=== PATIENT | male | born 2000 | race African-American/Black ===

== ENCOUNTER 2018-10-01 12:18 | Emergency (ER) | payer OTHER ==
[~2018-10-01] VITALS: Ht 180.3 cm; Wt 84.1 kg
[2018-10-01] MEDS ORDERED: BUPR75TA5 PO (12:56)
[2018-10-01] MEDS ORDERED: IBUPROFEN 600 MG TAB PO ONE (14:00)
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
--- NOTE | 2018-10-01 15:17 | REP ---
BILATERAL KNEE SERIES: Five views of bilateral each knee were performed. There is no acute fracture or dislocation. Joint spaces are unremarkable in appearance. There is no joint effusion. IMPRESSION: No evidence of acute fracture or dislocation. Electronically Signed by Rakan Samuels MD 10/01/2018 04:03 P
[2018-10-01] MEDS ORDERED: IBUP-1022 PO (15:29)
[2018-10-01 15:32] VITALS: BP 108/65
== END 2018-10-01 15:33 | disposition home or self-care (01) ==
LOC: M ED 12:18
DX: S80.01XA Contusion of right knee, initial encounter (principal); S80.02XA Contusion of left knee, initial encounter; S50.02XA Contusion of left elbow, initial encounter; V43.62XA Car passenger injured in collision with other type car in traffic accident, initial encounter; Y92.410 Unspecified street and highway as the place of occurrence of the external cause; Z79.899 Other long term (current) drug therapy

== ENCOUNTER → 2018-11-12 | Day surgery (SDC) | payer OTHER ==
[~2018-11-12] VITALS: Ht 180.3 cm; Wt 84.1 kg
[~2018-11-12] MED LIST: BUPR150T3 PO; BUPR75TA5 PO; IBUP-1022 PO; KETOROLAC 60 MG/2 ML VIAL (J1885) As Ordered ONE; LIDOCAINE 1% SDV INJ 30 ML VIAL As Ordered ONE; LIDOCAINE 2% INJ 100 MG/5 ML SDV (FOR ANES.) As Ordered ONE; LR 1,000 ML IV SCH; METOCLOPRAMIDE INJ 10MG/2ML VIAL (J2765) IV PRN; MIDAZOLAM INJ 2 MG/2 ML VIAL (J2250) As Ordered ONE; MORPHINE 10 MG/ML 1ML VIAL (J2270) IV PRN; NS 1,000 ML IV SCH; ONDANSETRON 4MG/2ML VIAL (J2405) As Ordered ONE; ONDANSETRON 4MG/2ML VIAL (J2405) IV ONE; ONDANSETRON 4MG/2ML VIAL (J2405) IV PRN; PERCOCET 5MG/325MG TAB PO PRN; PROPOFOL 200 MG/20 ML VIAL As Ordered ONE; ROCURONIUM BROMIDE 50 MG/5 ML VIAL As Ordered ONE; SUGAMMADEX SODIUM 500 MG/5 ML VIAL (BRIDION) As Ordered ONE; cefTRIAXone SOD 1 GM VIAL (J0696) As Ordered ONE; dexameTHASONE 4 MG/ML 1ML VIAL (J1100) As Ordered ONE; fentaNYL 100 MCG/2 ML INJECTION (J3010) IV PRN; fentaNYL 250 MCG/5 ML INJECTION (J3010) As Ordered ONE
[2018-11-12] MEDS: MORPHINE 4 MG/ML 1ML VIAL/SYRINGE (J2270) IV PRN ×2 (11:48→12:40)
[2018-11-12 12:30] LABS: HEMATOCRIT 40.2 % (42.0-52.0); HEMOGLOBIN 13.5 g/dl (13.5-17.5); MEAN CORPUSCULAR HEMOGLOBIN 30.3 pg (27.0-33.0); MEAN CORPUSCULAR HGB CONC 33.6 g/dl (32.0-36.5); MEAN CORPUSCULAR VOLUME 90.3 fl (80.0-96.0); PLATELET COUNT, AUTOMATED 190 10^3/uL (150-450); RED BLOOD COUNT 4.45 10^6/uL (4.30-6.10); WHITE BLOOD COUNT 5.5 10^3/uL (4.0-10.0)
[2018-11-12 12:49] LABS: INR 1.22; PARTIAL THROMBOPLASTIN TIME 29.1 SECONDS (25.4-37.6); PROTHROMBIN TIME 15.6 SECONDS (12.1-14.4)
[2018-11-12 12:59] LABS: BLOOD UREA NITROGEN 12 MG/DL (7-18); CALCIUM LEVEL 9.1 MG/DL (8.5-10.1); CARBON DIOXIDE LEVEL 26 MEQ/L (21-32); CHLORIDE LEVEL 107 MEQ/L (98-107); CREATININE FOR GFR 0.95 MG/DL (0.70-1.30); GLUCOSE, FASTING 101 MG/DL (70-100); POTASSIUM SERUM 3.6 MEQ/L (3.5-5.1); SODIUM LEVEL 138 MEQ/L (136-145)
--- NOTE | 2018-11-12 14:29 | REP ---
SCROTAL ULTRASOUND: 11/12/2018. CLINICAL HISTORY: Scrotal pain and swelling. FINDINGS: No prior study. The right testis 5.4 x 3 x 3.1 cm and the left is 4.7 x 2.1 x 3.4 cm. On the color images [id number], there was no flow seen within the right testis. Left testis is homogeneous. It shows color flow with Doppler tracing resistive index 0.47. The right testis showed no color flow and no Doppler arterial flow visible. Scrotal wall thickness is 5.3 mm on the right and 2.5 mm on the left. The epididymal head size on the right is 7.3 mm and on the left 15.9 mm. There is a cyst in epididymal head on the left 11 x 8 x 9 mm. Small hydrocele is present on both sides. IMPRESSION: 1. Torsion of the right testis with no blood flow demonstrated on color or Doppler tracings. 2. Normal left testis. Small hydroceles. I discussed this by phone with Dr. Lowery in the emergency room treating this patient. Electronically Signed by Thom Benz MD 11/12/2018 06:39 P
[2018-11-12 18:25] VITALS: BP 135/88
--- NOTE | 2018-12-02 15:53 | RO ---
DATE OF PROCEDURE: 11/12/2018 PREOPERATIVE DIAGNOSIS: Left testicular torsion. POSTOPERATIVE DIAGNOSIS: Left testicular torsion. OPERATIVE PROCEDURE PERFORMED: 1. Scrotal exploration. 2. Bilateral orchiopexy. SURGEON: Ernesto Bhatt MD FILING WRITER: ANESTHESIA: General. ESTIMATED BLOOD LOSS: Minimal. INDICATION FOR SURGERY: Katie Nieves is a 18-year-old young man who awoke from bed with severe left-sided scrotal pain and swelling. He came to the emergency room where venous Doppler showed findings consistent with left testicular torsion. He now presents for urgent management of this problem. DESCRIPTION OF PROCEDURE: The patient was brought to the operating room, placed in supine position. After initiation of general anesthesia, was placed in the dorsal lithotomy position. After initiation of general anesthesia, was prepped and draped in the usual sterile fashion. A horizontal incision was made over the left hemiscrotum, and dissection was carried out through the layers of the scrotum. The tunica vaginalis was entered, and a small amount of fluid was removed. The testicle was noted to be dusky blue. It was rotated 360 degrees in order to completely detorse the testicle, at which point the testicle was noted to pink up somewhat. It was surrounded in a warm lap. Attention was turned to the contralateral testicle. A horizontal incision was made over the right hemiscrotum, and again dissection was carried out through the layers of the scrotum. The tunica vaginalis was again entered, and a small amount of clear and colored fluid was removed. The testicle on this side was palpably normal. The appendix testis and the appendix epididymis was removed using electrocautery device. With the testicle in its normal anatomical position, it was tacked to the dartos fascia medially and laterally with a nylon suture. Once this was complete, the scrotum was closed in layers, the skin being closed with a running chromic suture. Our attention was then redirected to the original side, the left. The warm lap was removed, and the testicle was noted to be much more viable. There was an area on the superior lateral aspect of the testicle that was still a little dusky, but it was felt that this would improve with improved blood flow. The testicle was returned to its normal anatomical position in the scrotum and again tacked medially and laterally to the dartos layer using a nylon suture. At the conclusion of the procedure, the testicles were noted to be pretty stabilized in the scrotum. The scrotum was closed on the left side, again in layers and skin being closed with a running chromic suture. The wound was then cleaned and dried and covered with Telfa and placed in the fluff and a scrotal support. Anesthesia was reversed, and the patient was transferred to a bed and taken to the postanesthesia care unit in good condition. Of note, the needle and instrument count were correct at the conclusion of the case.
== END | disposition home or self-care (01) ==
LOC: EDUNIT# 11:06 → M ED 11:13 → EDBD 11:13 → M SDC 14:35
PROVIDERS: ATTEND Urology
DX: N44.00 Torsion of testis, unspecified (principal)
CPT/HCPCS: 36415; 54640; 76870; 80048; 85027; 85610; 85730; 93976; 96374; 96375; 99284; J0696; J1100; J2250; J2270; J2405; J3010

== ENCOUNTER 2019-07-19 18:46 | Emergency (ER) | payer OTHER ==
[~2019-07-19] VITALS: Ht 180.3 cm; Wt 83.2 kg
[~2019-07-19 18:46] MED LIST changes: -KETOROLAC 60 MG/2 ML VIAL (J1885) As Ordered ONE; -LIDOCAINE 1% SDV INJ 30 ML VIAL As Ordered ONE; -LIDOCAINE 2% INJ 100 MG/5 ML SDV (FOR ANES.) As Ordered ONE; -LR 1,000 ML IV SCH; -METOCLOPRAMIDE INJ 10MG/2ML VIAL (J2765) IV PRN; -MIDAZOLAM INJ 2 MG/2 ML VIAL (J2250) As Ordered ONE; -MORPHINE 10 MG/ML 1ML VIAL (J2270) IV PRN; -NS 1,000 ML IV SCH; -ONDANSETRON 4MG/2ML VIAL (J2405) As Ordered ONE; -ONDANSETRON 4MG/2ML VIAL (J2405) IV ONE; -ONDANSETRON 4MG/2ML VIAL (J2405) IV PRN; -PERCOCET 5MG/325MG TAB PO PRN; -PROPOFOL 200 MG/20 ML VIAL As Ordered ONE; -ROCURONIUM BROMIDE 50 MG/5 ML VIAL As Ordered ONE; -SUGAMMADEX SODIUM 500 MG/5 ML VIAL (BRIDION) As Ordered ONE; -cefTRIAXone SOD 1 GM VIAL (J0696) As Ordered ONE; -dexameTHASONE 4 MG/ML 1ML VIAL (J1100) As Ordered ONE; -fentaNYL 100 MCG/2 ML INJECTION (J3010) IV PRN; -fentaNYL 250 MCG/5 ML INJECTION (J3010) As Ordered ONE
[2019-07-19 18:47] VITALS: BP 131/76
[2019-07-19] MEDS ORDERED: KETOROLAC 60 MG/2 ML VIAL (J1885) IM ONE (21:15)
== END 2019-07-19 21:50 | disposition home or self-care (01) ==
LOC: M ED 18:46
DX: Z65.8 Other specified problems related to psychosocial circumstances (principal); F45.8 Other somatoform disorders; Z79.899 Other long term (current) drug therapy
CPT/HCPCS: 96372; 99283; J1885